=== PATIENT | female | born 1935 | race Caucasian/White ===

== ENCOUNTER 2019-10-03 16:44 | Observation (INO) | payer MEDICARE, SELFPAY ==
[2019-10-03 16:53] VITALS: BP 115/56; PULSE 112; RESP 20; TEMP 37.1; O2SAT 94; BMI 23.2
--- NOTE | 2019-10-03 16:53 | PC.NURSE ---
Pt arrived to floor via at this time.
--- NOTE | 2019-10-03 17:21 | XR_ITS ---
PROCEDURE: XR CHEST 2V CLINICAL HISTORY: emesis and weakness COMPARISON: No exams were available for comparison FINDINGS: The cardiomediastinal silhouette and pulmonary vascularity are within normal limits. Patchy density noted at the area of the lingula may be due to pericardial fat pad versus an area of infiltrate. Degenerative changes thoracic spine IMPRESSION: Pericardial fat pad versus infiltrate in the lingular region Dictated by: Benedict Purdy MD 10/04/2019 06:39 Electronically signed by Benedict Purdy MD in [place] 10/04/2019 06:39
--- NOTE | 2019-10-03 17:21 | CT_ITS ---
PROCEDURE: CT ABDOMEN PELVIS W CON CLINICAL INDICATION: abdominal pain and emesis Generalized abdominal pain weakness and vomiting COMPARISON: No exams were available for comparison TECHNIQUE: IV Contrast: 75ML OPTIRAY 350 Oral Contrast None Axial images obtained with sagittal and coronal reformats. All CT scans at the facility use one or more dose reduction, viz: automated exposure control, ma/kV adjustment per patient size (including targeted exams where dose is matched to indication, i.e. head), or iterative reconstruction technique. FINDINGS: LOWER THORAX: There is a 4 mm nodule and a 3 mm noncalcified nodule in the right middle lobe and 1 in the right lower lobe anteriorly. Mild scarring in the right middle lobe medially. Mild pericardial thickening. ABDOMEN & PELVIS: The liver, gallbladder, spleen, adrenal glands, and pancreas have an unremarkable appearance. Small hypodensities in both kidneys too small to categorize and may represent small renal cysts. No intestinal obstruction or free air. No evidence of appendicitis or diverticulitis. There is diverticulosis of the sigmoid colon. No pelvic mass or abnormal fluid collection. Multilevel degenerative changes are present in the lumbar spine and hips. IMPRESSION: 1. No acute finding. 2. Colonic diverticulosis. 3. Small nodules in the right lung base. Consider 12 month follow-up to confirm stability Dictated by: Benedict Purdy MD 10/04/2019 06:22 Electronically signed by Benedict Purdy MD in [facility] 10/04/2019 06:22
[2019-10-03 17:57] VITALS: PULSE 112; O2SAT 112
[2019-10-03 18:18] LABS: Basophils # 0.1 K/mm3 (0-0.2); Basophils % 0.9 % (0.1-2.0); Eosinophils # 0.1 K/mm3 (0.0-0.4); Eosinophils % 1.1 % (0.1-12.0); Hematocrit 33.8 % (37.0-47.0); Hemoglobin 10.5 g/dL (12.2-16.2); Lymphocytes # 1.3 K/mm3 (0.7-4.5); Lymphocytes % 13.9 % (10-50); Mean Corpuscular HGB Conc 31.1 g/dL (31.8-35.4); Mean Corpuscular Hemoglobin 33.6 pg (27.0-31.2); Mean Platelet Volume 8.6 fl (7.4-10.4); Monocytes # 0.5 K/mm3 (0.1-1.0); Monocytes % 4.7 % (1.7-9.3); Neutrophils # 7.7 K/mm3 (1.8-7.8); Neutrophils % 79.5 % (37.0-80.0); Platelet Count 236 K/mm3 (142-424); Red Blood Count 3.12 M/mm3 (4.20-5.40); Red Cell Distribution Width 15.6 % (11.5-17.5); White Blood Count 9.7 K/mm3 (4.8-10.8)
[2019-10-03 18:23] LABS: Amylase 37 U/L (30-110); Lipase 53 U/L (23-300)
[2019-10-03 18:24] LABS: Chloride 98 mmol/L (98-107); Lactic Acid 1.7 mmol/L (0.7-2.1); Sodium 137 mmol/L (136-145)
[2019-10-03 18:27] LABS: Alanine Aminotransferase 11 U/L (12-78); Albumin Level 3.1 g/dl (3.5-5.0); Albumin/Globulin Ratio 1.3 (1.1-1.8); Alkaline Phosphatase 91 U/L (38-126); Aspartate Amino Transferase 24 U/L (14-36); Bilirubin,Total 0.9 mg/dl (0.2-1.3); Blood Urea Nitrogen 7 mg/dl (7-17); Calcium 8.7 mg/dl (8.4-10.2); Carbon Dioxide 21 mmol/L (22.0-30.0); Creatinine Clearance Estimated 35 mL/min (50-200); Estimated Glomerular Filt Rate 43 ml/min (>60); GFR (African American) 52 ML/MIN (>60); Globulin 2.3 g/dL (1.3-3.2); Glucose 91 mg/dl (74-100); Total Protein,Serum 5.4 g/dl (6.3-8.2)
[2019-10-03 18:28] LABS: Magnesium 1.3 mg/dl (1.6-2.3)
--- NOTE | 2019-10-03 19:07 | ECG_ITS ---
APPROVED REPORT Exam: Resting ECG HR:93 bpm ECG Measurements Heart Rate 93 AXES AL 174 P 46 QRSd 74 QRS -14 QT 380 T 74 QTc 472 <Conclusion> Normal sinus rhythm LAD changes Abnormal ECG Electronically signed by : Michelet Estrada, 10/04/2019 17:03:05
[2019-10-03 19:46] VITALS: BP 127/61; PULSE 93; RESP 24; TEMP 36.7; O2SAT 95
--- NOTE | 2019-10-03 19:58 | PC.NURSE ---
Late entry: Pt completed Oral contrast @ 1914. Collin in Radiology was notified.
[2019-10-03 20:48] LABS: Adenovirus F 40/41, stool Not Detected (NotDetected); Astrovirus Not Detected (NotDetected); Campylobacter Not Detected (NotDetected); Clostridium Difficile A/B, PCR Not Detected (NotDetected); Cryptosporidium Not Detected (NotDetected); Cyclospora Cayetanesis Not Detected (NotDetected); Entamoeba histolytica Not Detected (NotDetected); Enteroaggregative E coli Not Detected (NotDetected); Enteropathogenic E coli Not Detected (NotDetected); Enterotoxigenic E coli Not Detected (NotDetected); Giardia lamblia Not Detected (NotDetected); Norovirus Not Detected (NotDetected); Plesimonas Shigalloides, PCR Not Detected (NotDetected); Rotavirus A Not Detected (NotDetected); Salmonella, PCR Not Detected (NotDetected); Sapovirus Not Detected (NotDetected); Shiga-like toxin E coli Not Detected (NotDetected); Shigella Enterovasive E coli Not Detected (NotDetected); Vibrio Cholerae Not Detected (NotDetected); Vibrio, PCR Not Detected (NotDetected); Yersinia Entercolitica, PCR Not Detected (NotDetected)
[2019-10-03 21:46] LABS: Microscopic, Urine URINE MICROSCOPIC (MICROSCOPIC)
[2019-10-03 21:47] LABS: Blood, Urine TRACE-I (Negative); Color,Urine YELLOW (Yellow); Glucose,Urine (UA) Negative (Negative); Ketones,Urine 1+ (Negative); Leukocyte Esterase,Urine TRACE (Negative); Nitrate,Urine Negative (Negative); Protein,Urine 1+ (Negative); Urobilinogen,Urine 0.2 EU/dl (0.2)
[2019-10-03 21:59] LABS: Bilirubin,Urine Negative (Negative)
[2019-10-03 22:00] LABS: Appearance,Urine Slightly Cloudy (Clear)
--- NOTE | 2019-10-03 22:01 | HMH.HP ---
*Admission Date: 10/03/19 *Chief complaint: nausea and weakness *History of present illness: Patient is an 83-year-old white female who presented from the office with significant weakness, intractable nausea and vomiting. Patient is status post cholecystectomy in May of this year. She relays that the gallbladder was gangrenous. Her surgery was at [facility] in [facility]. She has subsequently had intractable nausea and vomiting, escalating weakness. She has been to several hospitals for evaluation, including [facility], [facility], and [place]. She relays increasing difficulty with swallowing, and frequent emesis. She denies hematemesis or blood per rectum. With increasing weakness the patient has sustained several falls. She fell into a dresser, has some ecchymosis along her left frontal forehead. She is clear, lucid, and at her baseline mentation. She was brought into the office in a wheelchair, and has been unable to ambulate on her own. Ms. Méndez has had a few loose bowel movements, we will send those for culture and H. pylori. We have gotten a CT scan, are awaiting the result. I reviewed her chest film, she appears to have a left lower lobe infiltrative process. Radiology report is pending. [facility] History Medical History: Reports:: Asthma, Chronic Obstructive Pulmonary Disease (COPD), Gall Bladder Disease, Hypertension Denies:: Cancer, Diabetes Mellitus Type 1, Diabetes Mellitus Type 2, MRSA *Have you ever received a pneumonia vaccine?: Yes *Have you received a flu vaccine this season?: Yes Other Surgeries: Yes: Appendectomy Amputation: No Fractures: No - *Social History Last grade of school completed: High school graduate Smoking Status: Never smoker Alcohol Intake: never *Occupational Status:: retired Housing: house Household Members: family *Travel in the last 8 weeks: None Family Hx:: Coronary Artery Disease, Diabetes, Hyperlipidemia, Hypertension Review of Systems - Constitutional Reports chills, Reports fatigue, Reports lack of energy, Reports malaise, Reports weakness, Reports weight loss - Eyes Reports other - ENT Reports difficulty swallowing, Reports pain with swallowing - *Cardiovascular Denies chest pain - *Respiratory Reports cough, Reports shortness of breath, Denies excessive phlegm production - *Gastrointestinal Reports abdominal pain, Reports bloating, Reports change in bowel habits, Reports loose stools, Reports difficulty swallowing, Reports feeling full early, Reports incontinent of stools, Reports nausea, Reports vomiting, Denies coffee ground vomit, Denies vomiting blood, Denies black, tarry stools - *Genitourinary Reports other - *Musculoskeletal Reports limited joint movement, Reports muscle weakness, Reports body aches, Reports stiffness - Integumentary/Breasts Reports other - *Neurologic Reports unsteadiness, Reports frequent falls, Reports weakness, Denies confusion, Denies memory loss, Denies seizure-like activity - Psychiatric Reports change in appetite, Denies memory loss - Endocrine Reports cold intolerance - Hematologic/Lymphatic Denies easy bleeding, Denies easy bruising - Allergic/Immunologic Reports other Meds Home Medications Medication Instructions Recorded Confirmed Type albuterol sulfate 90 mcg/actuation 2 puffs INHALATION Q4HP PRN 10/03/19 10/03/19 History aerosol inhaler hydrocodone 5 mg-acetaminophen 325 1 tab PO DAILY PRN tab 10/03/19 10/03/19 History mg tablet lisinopril 10 mg tablet 10 mg PO DAILY tab 10/03/19 10/03/19 History pantoprazole 40 mg tablet,delayed 40 mg PO DAILY 10/03/19 10/03/19 History release Allergies Allergy/AdvReac Type Severity Reaction Status Date / Time azithromycin Allergy Unknown Verified 10/03/19 15:29 Penicillins Allergy Unknown Verified 10/03/19 15:29 Exam Vital signs and Labs for Last 24 Hours: Temp Pulse Resp BP Pulse Ox 98.1 F 93 H 24 127/
[2019-10-03 22:18] LABS: Bacteria,Urine 1+ /lpf; Mucus,Urine 1+ /lpf; WBC,Urine TNTC #/hpf (0-3)
[2019-10-03 22:58] LABS: Adenovirus,PCR Not Detected (NotDetected); Bordetella Pertussis Not Detected (NotDetected); Chlamydophila Pneumoniae, PCR Not Detected (NotDetected); Coronavirus 19, PCR Not Detected (NotDetected); Coronavirus 229E Not Detected (NotDetected); Coronavirus NL63 Not Detected (NotDetected); Coronavirus OC43 Not Detected (NotDetected); Coronovirus HKU1,PCR Not Detected (NotDetected); Human Metapneumovirus Not Detected (NotDetected); Influenza A, PCR Not Detected (NotDetected); Influenza AH1, 2009 Not Detected (NotDetected); Influenza AH1, PCR Not Detected (NotDetected); Influenza AH3,PCR Not Detected (NotDetected); Influenza B, PCR Not Detected (NotDetected); Mycoplasma Pneumoniae, PCR Not Detected (NotDected); Parainfluenza 1, PCR Not Detected (NotDetected); Parainfluenza 2, PCR Not Detected (NotDetected); Parainfluenza 3, PCR Not Detected (NotDetected); Parainfluenza 4, PCR Not Detected (NotDetected); Respiratory Syncytial Virus Not Detected (NotDetected); Rhinovirus/Enterovirus Not Detected (NotDetected)
[2019-10-04] VITALS: BP 131/95; PULSE 98; RESP 18; TEMP 37; O2SAT 94
[2019-10-04 03:56] VITALS: BP 127/46; PULSE 84; RESP 18; TEMP 36.7; O2SAT 97
[2019-10-04 04:01] VITALS: BMI 23.6
--- NOTE | 2019-10-04 04:21 | PC.NURSE ---
A&OX4. pt has active bowel sounds. pt C/O of nausea and was medicated per MAY. Pt has ambulated to BSC X1 danika, several loose stools this shift. diarrhea panel collected this shift and was negative
--- NOTE | 2019-10-04 07:24 | HMH.PHAVTE ---
[facility] Pharmacy VTE Monitoring - Patient Demographics Admission date: 10/04/19 Report Date: 10/04/19 Time: 07:24 Allergies/Adverse Reactions: Patient Allergies azithromycin Allergy (Intermediate, Verified 10/03/19 22:55) Hives Penicillins Allergy (Intermediate, Verified 10/03/19 22:55) hive Height: 1.63 m Weight: 62.641 kg Patient Problems: Current Active Problems Nausea & vomiting (Acute) Weakness (Acute) Dysphagia (Acute) Poor fluid intake (Acute) Poor fluid intake (Acute) At risk for dehydration due to poor fluid intake (Acute) Pneumonia (Acute) Asthma (Acute) Facial bruising (Acute) Chills (Acute) Hypokalemia (Acute) - VTE Risk Labs: VTE Related Lab Results Hgb 10.5 g/dL (12.2-16.2) L 10/03/19 18:00 Hct 33.8 % (37.0-47.0) L 10/03/19 18:00 Plt Count 236 K/mm3 (142-424) 10/03/19 18:00 BUN 7 mg/dl (7-17) 10/03/19 18:00 Creatinine 1.20 mg/dl (0.52-1.04) H 10/03/19 18:00 Estimated Creat Clear 35 mL/min (50-200) 10/03/19 18:00 Was VTE Risk Assessment Performed: No VTE Score: 4 VTE Risk Level: Low Risk Clinical Trial Participant: No - Prophylaxis VTE Prophylaxis Ordered?: Yes Types of VTE Prophylaxis: TEDS Knee High
[2019-10-04 07:51] VITALS: O2SAT 96
[2019-10-04 08:00] VITALS: BP 128/60; PULSE 97; RESP 16; TEMP 36.6; O2SAT 95
--- NOTE | 2019-10-04 08:08 | FL_ITS ---
PROCEDURE: FL UPPER GI SERIES W/O AIR CLINICAL INDICATION: dysphagia COMPARISON: No exams were available for comparison TECHNIQUE: FLUOROSCOPY TIME : 1 minutes 43 seconds FINDINGS: The patient could not stand up and was studied in the recumbent position. The swallowing function was normal. There is moderate posterior indentation of the barium column while swallowing lower cervical spine level consistent with cricopharyngeal dysfunction. There is [id number] multilevel degenerate spurring of the lower cervical spine noted as well. Esophageal motility was otherwise normal. There is a small sliding hiatal hernia but there is no significant GE reflux seen during the study. The study was ordered without air given and stomach is somewhat incompletely distended but shows no obvious mucosal abnormalities. The duodenal bulb and duodenal sweep appear normal. The proximal small bowel appears radiographically normal on a 4-5 minute delayed overhead film. 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 There is a small sliding hiatal hernia without significant GE reflux seen. Otherwise normal appearing stomach and proximal small bowel Dictated by: Dr. Nhan Reynaga MD 10/04/2019 09:[address] Nhan Reynaga MD in [place] 10/04/2019 09:32
--- NOTE | 2019-10-04 08:09 | HMH.ACPN2 ---
Internal Medicine - PN: Subj *Date: 10/04/19 *Time: 08:41 Interval history: uneventful night nausea responded to phenergan loose bm culture stool neg ct negative generalized weakness cxr=lingula infiltrate iv levaquin Exam Vital signs and Labs for Last 24 Hours: Temp Pulse Resp BP Pulse Ox 98.1 F 84 18 127/46 L 96 10/04/19 03:56 10/04/19 03:56 10/04/19 03:56 10/04/19 03:56 10/04/19 07:51 Laboratory Results - last 24 hr 10/03/19 18:00: WBC 9.7, RBC 3.12 L, Hgb 10.5 L, Hct 33.8 L, MCV 108.0 H, MCH 33.6 H, MCHC 31.1 L, RDW 15.6, Plt Count 236, MPV 8.6, Neut % (Auto) 79.5, Lymph % (Auto) 13.9, [place] % (Auto) 4.7, Eos % (Auto) 1.1, Baso % (Auto) 0.9, Neut # (Auto) 7.7, Lymph # (Auto) 1.3, [place] # (Auto) 0.5, Eos # (Auto) 0.1, Baso # (Auto) 0.1 10/03/19 18:00: Sodium 137, Potassium 3.0 L, Chloride 98, Carbon Dioxide 21 L, Anion Gap 21.0 H, BUN 7, Creatinine 1.20 H, Estimated Creat Clear 35, Estimated GFR 43 L, Est GFR ( Amer) 52 L, Glucose 91, Calcium 8.7, Magnesium 1.3 L, Total Bilirubin 0.9, AST 24, ALT 11 L, Alkaline Phosphatase 91, Total Protein 5.4 L, Albumin 3.1 L, Globulin 2.3, Albumin/Globulin Ratio 1.3 10/03/19 18:00: Amylase 37, Lipase 53 10/03/19 18:00: Lactate 1.7 10/03/19 20:30: Stl Aeromonas (PCR) Not detected, Stl C. cayetanensis PCR Not detected, Stool Rotavirus (PCR) Not detected, Stl Adenov F 40/41 PCR Not detected, Stool Astrovirus (PCR) Not detected, Stool Campylobacter PCR Not detected, Stl C.difficile Tox PCR Not detected, Stool Cryptosporidium PCR Not detected, Stl E.coli Shiga Tox PCR Not detected, Stool E coli O157 PCR Not detected, Stl Enterotoxigenic E PCR Not detected, Stool EPEC (PCR) Not detected, Stool EAEC (PCR) Not detected, Stl E. histolytica PCR Not detected, Stool Giardia Lamblia PCR Not detected, Stool Salmonella PCR Not detected, Stool Sapovirus (PCR) Not detected, Stl P. shigelloides PCR Not detected, Stl Shigella/EIEC PCR Not detected, St Y.enterocolitica PCR Not detected, Stool Vibrio (PCR) Not detected, Stl Vibrio cholerae PCR Not detected, Stl Norovirus GI/GII PCR Not detected 10/03/19 21:30: Urine Color Yellow, Urine Appearance Slightly cloudy, Urine pH 6.0, Ur Specific [place] 1.020, Urine Protein 1+, Urine Glucose (UA) Negative, Urine Ketones 1+, Urine Blood Trace-i, Urine Nitrate Negative, Urine Bilirubin Negative, Urine Urobilinogen 0.2, Ur Leukocyte Esterase Trace, Urine WBC Tntc, Ur Squamous Epith Cells 3-5, Urine Bacteria 1+, Fine Granular Casts 3-5, Urine Mucus 1+ 10/03/19 22:48: Chlamy pneumoniae PCR Not detected, Adenovirus (PCR) Not detected, B. pertussis DNA (PCR) Not detected, Coronavirus OC43 (PCR) Not detected, Coronavirus HKU1 (PCR) Not detected, Coronavirus 229E (PCR) Not detected, COVID-19 PCR Not detected, Coronavirus NL63 (PCR) Not detected, Human Metapneumovir PCR Not detected, Influenza A (H1) PCR Not detected, Influ A (H1N1/09) PCR Not detected, Influenza A (H3) PCR Not detected, Influenza Type A (PCR) Not detected, Influenza Type B (PCR) Not detected, M. pneumoniae (PCR) Not detected, Parainfluenza 1 (PCR) Not detected, Parainfluenza 2 (PCR) Not detected, Parainfluenza 3 (PCR) Not detected, Parainfluenza 4 (PCR) Not detected, RSV (PCR) Not detected, Entero/Rhino (PCR) Not detected I & O for Last 24 hours: Intake & Output 10/01/19 10/02/19 10/03/19 10/04/19 23:59 23:59 23:59 23:59 Intake Total 110 / 110 1081 / 1081 Output Total 240 / 240 Balance -130 / -130 1081 / 1081 Weight 135 lb 8 oz 138 lb 1.6 oz Microbiology Reports for the Last 24 Hours: Microbiology 10/03/19 21:30 Urine,Catheterized Urine Culture - Preliminary - Constitutional no acute distress, chronically ill appearing - *Routine HEENT Exam Head: Present: normocephalic. Absent: atraumatic ENT: Present: mucous membranes moist - *Routine Neck Exam Present: supple, trachea midline - *Routine Respiratory Exam Present: decreased breath sounds, rhonchi. Absent: acces
[2019-10-04 08:37] LABS: Basophils % 0.3 % (0.1-2.0); Eosinophils # 0.3 K/mm3 (0.0-0.4); Eosinophils % 4.3 % (0.1-12.0); Lymphocytes # 2.5 K/mm3 (0.7-4.5); Lymphocytes % 33.2 % (10-50); Mean Corpuscular HGB Conc 33.1 g/dL (31.8-35.4); Mean Corpuscular Hemoglobin 34.8 pg (27.0-31.2); Mean Platelet Volume 8.6 fl (7.4-10.4); Monocytes # 0.4 K/mm3 (0.1-1.0); Monocytes % 5.8 % (1.7-9.3); Neutrophils # 4.2 K/mm3 (1.8-7.8); Neutrophils % 56.6 % (37.0-80.0); Platelet Count 199 K/mm3 (142-424); Red Blood Count 2.71 M/mm3 (4.20-5.40); Red Cell Distribution Width 16.1 % (11.5-17.5); White Blood Count 7.4 K/mm3 (4.8-10.8)
[2019-10-04 08:38] LABS: Hemoglobin 9.4 g/dL (12.2-16.2)
[2019-10-04 08:39] LABS: Hematocrit 28.4 % (37.0-47.0)
[2019-10-04 08:50] LABS: Chloride 101 mmol/L (98-107)
[2019-10-04 08:51] LABS: Potassium 3.4 mmoL/L (3.5-5.1); Sodium 137 mmol/L (136-145)
[2019-10-04 08:53] LABS: Blood Urea Nitrogen 9 mg/dl (7-17); Creatinine Clearance Estimated 31 mL/min (50-200); Estimated Glomerular Filt Rate 36 ml/min (>60); GFR (African American) 44 ML/MIN (>60)
[2019-10-04 08:54] LABS: Anion Gap 16.4 mEq/L (5-15); Calcium 7.9 mg/dl (8.4-10.2); Carbon Dioxide 23 mmol/L (22.0-30.0); Glucose 52 mg/dl (74-100)
--- NOTE | 2019-10-04 09:56 | HMH.PHAINT ---
HOME MEDICATION RECONCILIATION COMPLETED USING LIST FROM [facility] AND PT INTERVIEW
--- NOTE | 2019-10-04 10:45 | SW/DCPLANNER ---
Addendum entered by Magdalena Booker 10/08/19 18:12: Daughter is agreeable to fax patient information to [facility] and [facility]. I will fax information tonight and follow up with referrals tomorrow morning. Addendum entered by Magdalena Booker 10/08/19 16:50: Patient has asked me to speak with her daughter regarding facilities. Patient stated that herself and her daughter are unsure of facilities in this area and would like to research. I have made several attempts to contact patients daughter with no answer. I will continue to call patients daughter to inform her of facilities and confirm which facilities patient information can be faxed. Addendum entered by Magdalena Booker 10/08/19 13:03: I have spoke with this patient again regarding discharge plans. Patient stated that she wants to return home with HH, daughter and wheel chair. I explained the option of placement for this patient. Patient stated that she did have a bad experience in the past with placement in [place]. I have informed this patient that I would be happy to search for placement in [place] for her and Dr Armijo is encouraging placement. Patient asked that she could speak with her daughter later today then speak with me this evening. I informed patient that I would follow up with her around 4PM today. Original Note: I have spoke with this patient regarding discharge plans once medically stable for discharge. Patient stated that she resides in [place] with her daughter. Patient stated that everything is well at home and she intends on returning back home with her daughter at time of discharge. Patient stated that she is in her wheelchair all the time at home. Patient has no further needs at home. Patient is currently receiving services from [facility]. I will contact home health agency at time of discharge to resume home health services. Discharge date is unknown at this time.
--- NOTE | 2019-10-04 11:56 | HMH.SLDYSPHA ---
Speech & Language Evaluation Speech/Language Dysphagia Evaluation Start: 10/04/19 11:47 Freq: ONCE Status: Active Protocol: Document 10/04/19 11:47 PAPI (Rec: 10/04/19 11:56 PAPI [id number]) Dysphagia Assess/Goals/Plan Assessment Date of Evaluation: 10/04/19 Evaluation Type Initial Certification Assessment/Problems dysphagia; painful swallow; Does Patient Qualify for Service No Qualify/Failure Comment Patient did not exhibit clinical signs or symptoms of dysphagia at bedside; Independent with swallowing strategies; Recommendations PHYSICIAN CERTIFICATION: The specified therapy services are required, authorized, and reviewed every 30 days. Diet Recommendations Mechanical Soft Liquid Type Recommendations Normal/Thin SL Swallow Guidelines Alt bite w/sip thru meal, Standard Aspiration Prec.,Eat at slow rate Dysphagia Swallow Precautions/Strategies Sitting Upright (90 deg),Chin Tuck Plan Pt/Guardian verbally ack understanding Yes of dx/prognosis/goals Pt/Guardian verbally ack understanding Yes of/consent to tx prog G -code Required No Education Instructions provided Patient and RN advised of swallowing strategies and precautions; Pt/Caregiver able to recall information Able to recall/restate Reinforcement needed No Speech & Language HPI History Present Illness Description of Patient Problem Mrs. Méndez presents with painful swallowing when eating /drinking; Pt/Caregiver Concerns Patient reports that she experiences pain with swallowing and a sensation of the food getting stuck, but she reports she does not feel like she can't breathe when food is stuck; Rehab Services Assessed Speech therapy Is this evaluation r/t stroke? No Vision Visual Difficulty Adequate Language Primary Language Azeri Koi Lang/Spoken in Home Azeri Accent Affect Communication? No General Information General Current Food Consistancy Mechanical Soft,Clear Liquids Dentition Upper Only,Poor Dentition Oxygen Status Room Air Facial Symmetry Symmetrical Patient Orientation Person,Place,Time,Situation Ability to Follow Directions Excellent Communication Ability No Impairment Dysph
--- NOTE | 2019-10-04 11:59 | HMH.PTEV ---
Physical Therapy Evaluation Rehab PT IP Evaluation Start: 10/04/19 08:11 Freq: ONCE Status: Active Protocol: Document 10/04/19 11:56 PHORMARTIN (Rec: 10/04/19 11:59 PHORNE [id number]) Subjective/History History History Pt is 83 yowf who presents with c/o general weakness, N/V , and now CAP. Pt reports using w/c for all mobility for the past 1 mo and lives with her daughter without steps to enter the home. Subjective Subjective Pt c/o feeling tired this am. Rehab PT IP Eval Objective Appearance Patient Behavior Appropriate Patient Orientation Person,Place,Time Difficulty following instructions none Speech Pattern Clear Ambulation Patient Able to Ambulate Yes Ambulation Observation IP General Gait Pattern Observation Shuffling Step Ambulation Distance (feet) 5 Ambulation Assistive Device None Ambulation Ability Minimal x 1 (25% assist) Balance Ability to Arise Able, uses arms to help Sitting Balance Steady, safe Standing Balance Steady, wide stance Dynamic Sitting Balance Ability Good Dynamic Standing Balance Ability Poor Transfers Bed Transfer Ability Contact Guard/Hand Hold Chair Transfer Ability Minimal x 1 (25% assist) Sit to Stand Bed Transfer Ability Minimal x 1 (25% assist) Sit to Stand Chair Transfer Ability Minimal x 1 (25% assist) ROM All Extremities PT ROM Status WFL MMT All Extremities PT MMT WFL Rehab PT IP prob,goals,plan Problems Date of Evaluation: 10/04/19 PT IP Problems Bed Mobility,Transfers,Gait Rehab Potential Rehab Potential Good Plan PT Intervention Plan Bed Mobility,Transfers,Gait, Therapeutic Exercise PT Plan Frequency BID Duration LOS Discharge Goals Bed Transfer Ability Supervision/Stand by Sit to Stand Chair Transfer Ability Contact Guard/Hand Hold Ambulation Assistive Device Rolling Walker Ambulation Distance (feet) 10 Discharge Plan PT Discharge Plan Pt is most appropriate for rehab placement, but could return home with family assist and home health therapy once medically stable. G -code Required No Eval Complexity Eval Charge Codes 39401 - Moderate Complexity PHYSICIAN CERTIFICATION: I certify the specified therapy se
--- NOTE | 2019-10-04 12:04 | HMH.PTEV ---
Physical Therapy Evaluation Rehab PT IP Evaluation Start: 10/04/19 08:11 Freq: ONCE Status: Active Protocol: Document 10/04/19 11:56 PHORMARTIN (Rec: 10/04/19 11:59 PHORNE [id number]) Subjective/History History History Pt is 83 yowf who presents with c/o general weakness, N/V , and now CAP. Pt reports using w/c for all mobility for the past 1 mo and lives with her daughter without steps to enter the home. Subjective Subjective Pt c/o feeling tired this am. Rehab PT IP Eval Objective Appearance Patient Behavior Appropriate Patient Orientation Person,Place,Time Difficulty following instructions none Speech Pattern Clear Ambulation Patient Able to Ambulate Yes Ambulation Observation IP General Gait Pattern Observation Shuffling Step Ambulation Distance (feet) 5 Ambulation Assistive Device None Ambulation Ability Minimal x 1 (25% assist) Balance Ability to Arise Able, uses arms to help Sitting Balance Steady, safe Standing Balance Steady, wide stance Dynamic Sitting Balance Ability Good Dynamic Standing Balance Ability Poor Transfers Bed Transfer Ability Contact Guard/Hand Hold Chair Transfer Ability Minimal x 1 (25% assist) Sit to Stand Bed Transfer Ability Minimal x 1 (25% assist) Sit to Stand Chair Transfer Ability Minimal x 1 (25% assist) ROM All Extremities PT ROM Status WFL MMT All Extremities PT MMT WFL Rehab PT IP prob,goals,plan Problems Date of Evaluation: 10/04/19 PT IP Problems Bed Mobility,Transfers,Gait Rehab Potential Rehab Potential Good Plan PT Intervention Plan Bed Mobility,Transfers,Gait, Therapeutic Exercise PT Plan Frequency BID Duration LOS Discharge Goals Bed Transfer Ability Supervision/Stand by Sit to Stand Chair Transfer Ability Contact Guard/Hand Hold Ambulation Assistive Device Rolling Walker Ambulation Distance (feet) 10 Discharge Plan PT Discharge Plan Pt is most appropriate for rehab placement, but could return home with family assist and home health therapy once medically stable. G -code Required No Eval Complexity Eval Charge Codes 43747 - Moderate Complexity PHYSICIAN CERTIFICATION: I certify the specified therapy se
[2019-10-04 13:21] VITALS: BMI 23.7
[2019-10-04 16:00] VITALS: BP 124/72; PULSE 78; RESP 16; TEMP 36.8; O2SAT 96
--- NOTE | 2019-10-04 18:34 | PC.NURSE ---
ALERT AND ORIENTED X4. PT HAS POOR PO INTAKE AND NEEDS ENCOURAGEMENT TO DRINK AND EAT. SHE STATES THAT NOTHING TASTES GOOD AND SHE CANNOT MAKE HERSELF EAT FOR THE PAST COUPLE OF WEEKS. PT REFUSES ENSURE BC SHE DISLIKES THE TASTE. 3 EPISODES OF DIARRHEA, 2 DOSES OF IMODIUM ADMINISTERED PER MAR. NO COMPLAINTS OF N/V. PT HAS BEEN UP TO BSC ASSIST X1 AND THEN HAS BEEN LYING IN BED THE ENTIRE SHIFT. PT C/O WEAKNESS AND GENERALIZED FATIGUE. IV IS SECURE, PATENT, AND INFUSING IV. NO COMPLAINTS VOICED. VSS. SAFETY MEASURES IN PLACE. WILL CONTINUE TO MONITOR
--- NOTE | 2019-10-04 19:12 | PC.NURSE ---
report given to melanie
[2019-10-04 19:53] VITALS: BP 128/42; PULSE 91; RESP 16; TEMP 36.9; O2SAT 95
[2019-10-05 03:57] VITALS: BP 128/65; PULSE 94; RESP 18; TEMP 36.9; O2SAT 100
[2019-10-05 05:38] VITALS: BMI 23.8
[2019-10-05 08:00] VITALS: BP 129/73; PULSE 112; RESP 18; TEMP 36.8; O2SAT 95
[2019-10-05 08:36] LABS: Basophils % 0.4 % (0.1-2.0); Eosinophils # 0.3 K/mm3 (0.0-0.4); Eosinophils % 3.8 % (0.1-12.0); Hematocrit 29.9 % (37.0-47.0); Hemoglobin 9.3 g/dL (12.2-16.2); Lymphocytes # 1.6 K/mm3 (0.7-4.5); Lymphocytes % 19.6 % (10-50); Mean Corpuscular HGB Conc 31.1 g/dL (31.8-35.4); Mean Corpuscular Volume 109.1 fl (81-99); Mean Platelet Volume 8.4 fl (7.4-10.4); Monocytes # 0.4 K/mm3 (0.1-1.0); Monocytes % 5.1 % (1.7-9.3); Neutrophils # 5.9 K/mm3 (1.8-7.8); Neutrophils % 71.2 % (37.0-80.0); Platelet Count 172 K/mm3 (142-424); Red Blood Count 2.75 M/mm3 (4.20-5.40); Red Cell Distribution Width 16.1 % (11.5-17.5); White Blood Count 8.3 K/mm3 (4.8-10.8)
[2019-10-05 08:44] LABS: Chloride 105 mmol/L (98-107); Potassium 3.4 mmoL/L (3.5-5.1); Sodium 139 mmol/L (136-145)
[2019-10-05 08:47] LABS: Anion Gap 13.4 mEq/L (5-15); Blood Urea Nitrogen 8 mg/dl (7-17); Carbon Dioxide 24 mmol/L (22.0-30.0); Creatinine Clearance Estimated 43 mL/min (50-200); Estimated Glomerular Filt Rate 53 ml/min (>60); GFR (African American) 64 ML/MIN (>60)
[2019-10-05 08:48] LABS: Calcium 7.9 mg/dl (8.4-10.2); Glucose 74 mg/dl (74-100)
--- NOTE | 2019-10-05 10:13 | HMH.ACPN2 ---
Internal Medicine - PN: Subj *Date: 10/06/19 *Time: 08:30 Interval history: better but still dec appetite and will try diff abx to cover esbl possibility and oob Exam Vital signs and Labs for Last 24 Hours: Temp Pulse Resp BP Pulse Ox 98.2 F 112 H 18 129/73 95 10/05/19 08:00 10/05/19 08:00 10/05/19 08:00 10/05/19 08:00 10/05/19 08:00 Laboratory Results - last 24 hr 10/03/19 21:30: Urine Color Yellow, Urine Appearance Slightly cloudy, Urine pH 6.0, Ur Specific [place] 1.020, Urine Protein 1+, Urine Glucose (UA) Negative, Urine Ketones 1+, Urine Blood Trace-i, Urine Nitrate Negative, Urine Bilirubin Negative, Urine Urobilinogen 0.2, Ur Leukocyte Esterase Trace, Urine WBC Tntc, Ur Squamous Epith Cells 3-5, Urine Bacteria 1+, Fine Granular Casts 3-5, Urine Mucus 1+ 10/05/19 08:10: WBC 8.3, RBC 2.75 L, Hgb 9.3 L, Hct 29.9 L, MCV 109.1 H, MCH 34.0 H, MCHC 31.1 L, RDW 16.1, Plt Count 172, MPV 8.4, Neut % (Auto) 71.2, Lymph % (Auto) 19.6, [place] % (Auto) 5.1, Eos % (Auto) 3.8, Baso % (Auto) 0.4, Neut # (Auto) 5.9, Lymph # (Auto) 1.6, [place] # (Auto) 0.4, Eos # (Auto) 0.3, Baso # (Auto) 0.0 10/05/19 08:10: Sodium 139, Potassium 3.4 L, Chloride 105, Carbon Dioxide 24, Anion Gap 13.4, BUN 8, Creatinine 1.00 D, Estimated Creat Clear 43, Estimated GFR 53 L, Est GFR ( Amer) 64 D, Glucose 74 D, Calcium 7.9 L I & O for Last 24 hours: Intake & Output 10/02/19 10/03/19 10/04/19 10/05/19 11:59 11:59 11:59 11:59 Intake Total 1191 / 1191 3450 / 3450 Output Total 240 / 240 300 / 300 Balance 951 / 951 3150 / 3150 Weight 138 lb 1.6 oz 139 lb 12.8 oz Microbiology Reports for the Last 24 Hours: Microbiology 10/03/19 21:30 Urine,Catheterized Urine Culture - Preliminary Gram Negative Rods - Constitutional no acute distress - *Routine HEENT Exam Head: Present: normocephalic Eye: Present: EOMI, PERRL ENT: Present: mucous membranes dry - *Routine Neck Exam Present: supple - *Routine Respiratory Exam Absent: respiratory distress - *Routine Cardiovascular Exam Present: RRR - *Routine Abdominal Exam Present: soft - *Routine Extremities Exam Absent: calf tenderness - *Routine Skin Exam Present: intact - *Routine Neurological Exam Present: alert, CN II-XII intact - Routine Psychiatric Exam Present: normal affect Assessment and Plan (1) Nausea & vomiting Current visit: Yes Status: Acute Qualifiers: Vomiting type: unspecified Vomiting Intractability: intractable Qualified Code(s): R11.2 - Nausea with vomiting, unspecified Category: Medical Code(s): R11.2 - Nausea with vomiting, unspecified (2) Weakness Current visit: Yes Status: Acute Category: Medical Code(s): R53.1 - Weakness (3) Dysphagia Current visit: Yes Status: Acute Qualifiers: Dysphagia type: pharyngoesophageal phase Qualified Code(s): R13.14 - Dysphagia, pharyngoesophageal phase Category: Medical Code(s): R13.10 - Dysphagia, unspecified (4) Poor fluid intake Current visit: Yes Status: Acute Category: Medical Code(s): R63.8 - Other symptoms and signs concerning food and fluid intake (5) Poor fluid intake Current visit: Yes Status: Acute Category: Medical Code(s): R63.8 - Other symptoms and signs concerning food and fluid intake (6) At risk for dehydration due to poor fluid intake Current visit: Yes Status: Acute Category: Medical Code(s): Z91.89 - Other specified personal risk factors, not elsewhere classified (7) Pneumonia Current visit: Yes Status: Acute Qualifiers: Pneumonia type: due to unspecified organism Laterality: left Lung location: lower lobe of lung Qualified Code(s): J18.9 - Pneumonia, unspecified organism Category: Medical Code(s): J18.9 - Pneumonia, unspecified organism (8) Asthma Current visit: Yes Status: Acute Qualifiers: Asthma severity: moderate Asthma persist
--- NOTE | 2019-10-05 12:00 | PC.NURSE ---
THIS RN PROVIDED REPORT TO MARCELLUS CHAPARRO RN WHOM TOOK OVER CARE.
[2019-10-05 15:47] VITALS: BP 114/51; PULSE 91; RESP 17; TEMP 36.7; O2SAT 100
--- NOTE | 2019-10-05 18:29 | PC.NURSE ---
Pt alert and oriented. No complaints since having pt from around lunch. Received report from Piter Gold RN. No c/o this evening. CB in reach. Fluids infusing as ordered per mar. Will cont to mx.
[2019-10-05 19:36] VITALS: BP 121/53; PULSE 99; RESP 16; TEMP 36.9; O2SAT 97
[2019-10-06 03:18] VITALS: BP 123/50; PULSE 50; RESP 17; TEMP 36.7; O2SAT 91
--- NOTE | 2019-10-06 03:24 | PC.NURSE ---
A&O X4. PT RESTED WELL THIS SHIFT WITH EYES CLOSED. PT STATES SHE DID NOT HAD AN APPETITE ON PREVIOUS SHIFT. MINIMAL C/O ABDOMINAL PAIN AT BEGINNING OF SHIFT. ADMINISTERED NORCO X1 PER MAY FPR PAIN RELIEF. UPON REASSESSMENT PT NOTED RESTING WITH EYES CLOSED AND NO FURTHER COMPLAINTS. MILD NAUSEA THIS SHIFT WELL. ADMINISTERED ZOFRAN PER MAY X1 THUS FAR. UPON REASSESSMENT PT NOTED RESTING WITH EYES CLOSED. DENIES ABDOMINAL DISCOMFORT WITH PALPATION. ABDOMEN NOTED SOFT AND FLAT. PT HAS NOT HAD A BM THUS FAR THIS SHIFT. DENIES THE URGE TO DEFECATE WHEN ASKED. ADEQUATE URINE OUTPUT NOTED PER BSC. URINE NOTED CLEAR AND BRIGHT YELLOW. TOLERATED RA WELL WITH NO C/O SOA. HYPERACTIVE BOWEL SOUNDS NOTED. NO EDEMA. REFUSED TEDS. VSS. REMAINS SAFE. CALL LIGHT WITHIN REACH. WILL CONTINUE TO MONITOR.
[2019-10-06 05:00] VITALS: BMI 24.1
[2019-10-06 07:51] LABS: Basophils % 0.4 % (0.1-2.0); Eosinophils # 0.2 K/mm3 (0.0-0.4); Eosinophils % 2.6 % (0.1-12.0); Hematocrit 29.7 % (37.0-47.0); Hemoglobin 9.3 g/dL (12.2-16.2); Lymphocytes % 26.5 % (10-50); Mean Corpuscular HGB Conc 31.4 g/dL (31.8-35.4); Mean Corpuscular Hemoglobin 34.6 pg (27.0-31.2); Mean Corpuscular Volume 110.3 fl (81-99); Mean Platelet Volume 8.7 fl (7.4-10.4); Monocytes # 0.4 K/mm3 (0.1-1.0); Monocytes % 5.9 % (1.7-9.3); Neutrophils # 4.9 K/mm3 (1.8-7.8); Neutrophils % 64.6 % (37.0-80.0); Platelet Count 197 K/mm3 (142-424); Red Blood Count 2.69 M/mm3 (4.20-5.40); White Blood Count 7.6 K/mm3 (4.8-10.8)
[2019-10-06 07:54] LABS: Chloride 106 mmol/L (98-107); Potassium 4.4 mmoL/L (3.5-5.1); Sodium 140 mmol/L (136-145)
[2019-10-06 07:57] LABS: Anion Gap 14.4 mEq/L (5-15); Blood Urea Nitrogen 8 mg/dl (7-17); Calcium 8.1 mg/dl (8.4-10.2); Carbon Dioxide 24 mmol/L (22.0-30.0); Creatinine Clearance Estimated 44 mL/min (50-200); Estimated Glomerular Filt Rate 69 ml/min (>60); GFR (African American) 83 ML/MIN (>60); Glucose 75 mg/dl (74-100)
[2019-10-06 08:00] VITALS: BP 117/54; PULSE 98; RESP 18; TEMP 36.5; O2SAT 90
--- NOTE | 2019-10-06 08:32 | HMH.ACPN2 ---
Internal Medicine - PN: Subj *Date: 10/07/19 *Time: 07:05 Interval history: doing better - has klebsiella uti but continued dec po intake and upper abd pain Exam Vital signs and Labs for Last 24 Hours: Temp Pulse Resp BP Pulse Ox 97.7 F 98 H 18 117/54 L 90 L 10/06/19 08:00 10/06/19 08:00 10/06/19 08:00 10/06/19 08:00 10/06/19 08:00 Laboratory Results - last 24 hr 10/03/19 21:30: Urine Color Yellow, Urine Appearance Slightly cloudy, Urine pH 6.0, Ur Specific [place] 1.020, Urine Protein 1+, Urine Glucose (UA) Negative, Urine Ketones 1+, Urine Blood Trace-i, Urine Nitrate Negative, Urine Bilirubin Negative, Urine Urobilinogen 0.2, Ur Leukocyte Esterase Trace, Urine WBC Tntc, Ur Squamous Epith Cells 3-5, Urine Bacteria 1+, Fine Granular Casts 3-5, Urine Mucus 1+ 10/05/19 08:10: WBC 8.3, RBC 2.75 L, Hgb 9.3 L, Hct 29.9 L, MCV 109.1 H, MCH 34.0 H, MCHC 31.1 L, RDW 16.1, Plt Count 172, MPV 8.4, Neut % (Auto) 71.2, Lymph % (Auto) 19.6, [place] % (Auto) 5.1, Eos % (Auto) 3.8, Baso % (Auto) 0.4, Neut # (Auto) 5.9, Lymph # (Auto) 1.6, [place] # (Auto) 0.4, Eos # (Auto) 0.3, Baso # (Auto) 0.0 10/05/19 08:10: Sodium 139, Potassium 3.4 L, Chloride 105, Carbon Dioxide 24, Anion Gap 13.4, BUN 8, Creatinine 1.00 D, Estimated Creat Clear 43, Estimated GFR 53 L, Est GFR ( Amer) 64 D, Glucose 74 D, Calcium 7.9 L 10/06/19 07:16: WBC 7.6, RBC 2.69 L, Hgb 9.3 L, Hct 29.7 L, MCV 110.3 H, MCH 34.6 H, MCHC 31.4 L, RDW 16.0, Plt Count 197, MPV 8.7, Neut % (Auto) 64.6, Lymph % (Auto) 26.5, [place] % (Auto) 5.9, Eos % (Auto) 2.6, Baso % (Auto) 0.4, Neut # (Auto) 4.9, Lymph # (Auto) 2.0, [place] # (Auto) 0.4, Eos # (Auto) 0.2, Baso # (Auto) 0.0 10/06/19 07:16: Sodium 140, Potassium 4.4 D, Chloride 106, Carbon Dioxide 24, Anion Gap 14.4, BUN 8, Creatinine 0.80, Estimated Creat Clear 44, Estimated GFR 69, Est GFR ( Amer) 83 D, Glucose 75, Calcium 8.1 L I & O for Last 24 hours: Intake & Output 10/03/19 10/04/19 10/05/19 10/06/19 11:59 11:59 11:59 11:59 Intake Total 1191 / 1191 3450 / 3450 2800 / 2800 Output Total 240 / 240 550 / 550 950 / 950 Balance 951 / 951 2900 / 2900 1850 / 1850 Weight 138 lb 1.6 oz 139 lb 12.8 oz 141 lb 4 oz Microbiology Reports for the Last 24 Hours: Microbiology 10/03/19 21:30 Urine,Catheterized Urine Culture - Preliminary Klebsiella pneumoniae Gram Positive Bacilli 10/03/19 18:00 Blood Blood Culture - Preliminary NO GROWTH AFTER 48 HOURS 10/03/19 18:00 Blood Blood Culture - Preliminary NO GROWTH AFTER 48 HOURS - Constitutional no acute distress - *Routine HEENT Exam Head: Present: normocephalic Eye: Present: EOMI, PERRL ENT: Present: mucous membranes dry - *Routine Neck Exam Present: supple - *Routine Respiratory Exam Present: CTA bilaterally - *Routine Cardiovascular Exam Present: RRR, murmur - *Routine Abdominal Exam Present: soft, tenderness - *Routine Extremities Exam Absent: calf tenderness - *Routine Skin Exam Present: intact - *Routine Neurological Exam Present: alert, oriented X3, CN II-XII intact - Routine Psychiatric Exam Present: normal affect Assessment and Plan (1) Nausea & vomiting Current visit: Yes Status: Acute Qualifiers: Vomiting type: unspecified Vomiting Intractability: intractable Qualified Code(s): R11.2 - Nausea with vomiting, unspecified Category: Medical Code(s): R11.2 - Nausea with vomiting, unspecified (2) Weakness Current visit: Yes Status: Acute Category: Medical Code(s): R53.1 - Weakness (3) Dysphagia Current visit: Yes Status: Acute Qualifiers: Dysphagia type: pharyngoesophageal phase Qualified Code(s): R13.14 - Dysphagia, pharyngoesophageal phase Category: Medical Code(s): R13.10 - Dysphagia, unspecified (4) Poor fluid intake Current visit: Yes Status: Acute
[2019-10-06 14:22] VITALS: BP 125/63; PULSE 97; O2SAT 93
[2019-10-06 15:44] VITALS: BP 131/70; PULSE 105; RESP 19; TEMP 36.9; O2SAT 95
[2019-10-06 15:45] VITALS: PULSE 88; PULSE 90
--- NOTE | 2019-10-06 15:54 | PC.NURSE ---
Pt alert and able to make needs known. Has had nausea this shift and states new meds have helped some but not completely taken nausea away. Have called rt to give prn albuteral neb r/t intermittent dry coughing. Pt has been up to chair this shift and refuses to take a bath at this time. CB is within reach. Have encouraged deep breathing. Pt has had no bm, therefore havent sent occult stool at this time. Cont to mx. VSS. Has used 02 intermittently prn for comfort. IV abt cont.
[2019-10-06 21:17] VITALS: BP 113/48; PULSE 75; RESP 17; TEMP 36.5; O2SAT 92
--- NOTE | 2019-10-06 21:46 | PC.NURSE ---
PER PT REQUEST APPLIED 2 LNC AT THIS TIME. PT STATES SHE FEELS SOA WHILE LYING IN BED. NO RESPIRATORY DISTRESS NOTED. WILL CONTINUE TO MONITOR.
--- NOTE | 2019-10-07 02:53 | PC.NURSE ---
A&O X4. NO C/O NAUSEA OR ABD PAIN THUS FAR THIS SHIFT. PT STATES SINCE RECEIVING HER PROTONIX AND REGLAN SHE HAS NOT HAD ANY NAUSEA OR ABD PAIN. APPETITE REMAINS POOR. NPO SINCE 0000 THIS SHIFT FOR SOLE CONSULT THIS AM. BILATERAL LUNGS NOTED CLEAR T/O UPON AUSCULTATION. PT REPORTS HAVING A DRY INTERMITTENT COUGH. ENCOURAGED USE OF INCENTIVE SPIROMETER THIS AM. PT DEMONSTRATED APPROPRIATE USE OF IS. +1 NON-PITTING EDEMA NOTED TO BLE. REFUSED TEDS. ADEQUATE URINE OUTPUT THIS SHIFT PER BSC ASSIST X1. NO BM THUS FAR. STILL NEEDS OCCULT STOOL SPECIMEN. VSS. REMAINS SAFE WITH BED ALARM FUNCTIONING. CALL LIGHT WITHIN REACH. WILL CONTINUE TO MONITOR.
[2019-10-07 03:14] VITALS: BP 147/83; PULSE 109; RESP 18; TEMP 36.7; O2SAT 98
[2019-10-07 05:00] VITALS: BMI 24.6
[2019-10-07 06:14] LABS: Eosinophils # 0.3 K/mm3 (0.0-0.4); Lymphocytes # 1.3 K/mm3 (0.7-4.5); Monocytes # 0.2 K/mm3 (0.1-1.0); Red Cell Distribution Width 15.9 % (11.5-17.5)
[2019-10-07 06:20] LABS: Basophils % 0.5 % (0.1-2.0); Chloride 107 mmol/L (98-107); Eosinophils % 7.2 % (0.1-12.0); Hematocrit 25.5 % (37.0-47.0); Lymphocytes % 37.8 % (10-50); Mean Corpuscular HGB Conc 31.1 g/dL (31.8-35.4); Mean Corpuscular Hemoglobin 34.1 pg (27.0-31.2); Mean Corpuscular Volume 109.6 fl (81-99); Mean Platelet Volume 8.4 fl (7.4-10.4); Monocytes % 6.4 % (1.7-9.3); Neutrophils # 1.7 K/mm3 (1.8-7.8); Platelet Count 154 K/mm3 (142-424); Potassium 3.9 mmoL/L (3.5-5.1); Red Blood Count 2.33 M/mm3 (4.20-5.40); Sodium 139 mmol/L (136-145); White Blood Count 3.5 K/mm3 (4.8-10.8)
[2019-10-07 06:23] LABS: Anion Gap 9.9 mEq/L (5-15); Blood Urea Nitrogen 6 mg/dl (7-17); Calcium 7.7 mg/dl (8.4-10.2); Carbon Dioxide 26 mmol/L (22.0-30.0); Creatinine Clearance Estimated 45 mL/min (50-200); Estimated Glomerular Filt Rate 80 ml/min (>60); GFR (African American) 97 ML/MIN (>60); Glucose 72 mg/dl (74-100)
--- NOTE | 2019-10-07 06:31 | PC.NURSE ---
CRITICAL LAB OF HGB 8.0 REPORTED TO ART SUPERVISOR, KOURTNEY. NO NEW ORDERS AT THIS TIME.
[2019-10-07 08:00] VITALS: BP 145/58; PULSE 94; RESP 16; TEMP 36.7; O2SAT 97
--- NOTE | 2019-10-07 08:06 | HMH.ACPN2 ---
Internal Medicine - PN: Subj *Date: 10/07/19 *Time: 08:06 Interval history: Patient is continuing to have some nausea. She continues with her globalized weakness. She has a Klebsiella UTI, on Invanz. He had previously seen a lingular infiltrate, will restart her Levaquin. Consult is pending. She is anemic with a hemoglobin of 8.0, increased MCV. Exam Vital signs and Labs for Last 24 Hours: Temp Pulse Resp BP Pulse Ox 98.1 F 109 H 18 147/83 H 98 10/07/19 03:14 10/07/19 03:14 10/07/19 03:14 10/07/19 03:14 10/07/19 03:14 Laboratory Results - last 24 hr 10/07/19 06:05: WBC 3.5 L D, RBC 2.33 L, Hgb 8.0 L, Hct 25.5 L, MCV 109.6 H, MCH 34.1 H, MCHC 31.1 L, RDW 15.9, Plt Count 154, MPV 8.4, Neut % (Auto) 48.0, Lymph % (Auto) 37.8, [place] % (Auto) 6.4, Eos % (Auto) 7.2, Baso % (Auto) 0.5, Neut # (Auto) 1.7 L, Lymph # (Auto) 1.3, [place] # (Auto) 0.2, Eos # (Auto) 0.3, Baso # (Auto) 0.0 10/07/19 06:05: Sodium 139, Potassium 3.9, Chloride 107, Carbon Dioxide 26, Anion Gap 9.9, BUN 6 L, Creatinine 0.70, Estimated Creat Clear 45, Estimated GFR 80, Est GFR ( Amer) 97, Glucose 72 L, Calcium 7.7 L I & O for Last 24 hours: Intake & Output 10/04/19 10/05/19 10/06/19 10/07/19 23:59 23:59 23:59 23:59 Intake Total 3061 / 3061 3295 / 3295 2028 815 / 815 Output Total 50 / 150 1050 / 1250 1450 / 2150 850 / 850 Balance 3011 / 2911 2244 / 2044 579 / -121 -35 / -35 Weight 138 lb 14.259 oz 139 lb 12.8 oz 141 lb 4 oz 144 lb 2 oz Microbiology Reports for the Last 24 Hours: Microbiology 10/03/19 21:30 Urine,Catheterized Urine Culture - Preliminary Klebsiella pneumoniae Enterococcus faecalis - Constitutional no acute distress, chronically ill appearing - *Routine HEENT Exam Eye: Absent: conjunctival icterus, periorbital ecchymosis ENT: Present: mucous membranes moist - *Routine Neck Exam Present: supple. Absent: JVD, tenderness - *Routine Respiratory Exam Present: CTA bilaterally. Absent: accessory muscle use, rhonchi, crackles - *Routine Cardiovascular Exam Present: RRR, Normal S1, Normal S2 - *Routine Abdominal Exam Present: soft, obese. Absent: tenderness, organomegaly, mass - *Routine Extremities Exam Present: KO stockings. Absent: cyanosis, clubbing, calf tenderness, tenderness - *Routine Skin Exam Present: intact. Absent: cyanosis, jaundice - *Routine Neurological Exam Present: alert, oriented X3 - Routine Psychiatric Exam Present: cooperative Assessment and Plan (1) Nausea & vomiting Current visit: Yes Status: Acute Qualifiers: Vomiting type: unspecified Vomiting Intractability: intractable Qualified Code(s): R11.2 - Nausea with vomiting, unspecified Category: Medical Code(s): R11.2 - Nausea with vomiting, unspecified (2) Weakness Current visit: Yes Status: Acute Category: Medical Code(s): R53.1 - Weakness (3) Dysphagia Current visit: Yes Status: Acute Qualifiers: Dysphagia type: pharyngoesophageal phase Qualified Code(s): R13.14 - Dysphagia, pharyngoesophageal phase Category: Medical Code(s): R13.10 - Dysphagia, unspecified (4) Poor fluid intake Current visit: Yes Status: Acute Category: Medical Code(s): R63.8 - Other symptoms and signs concerning food and fluid intake (5) Poor fluid intake Current visit: Yes Status: Acute Category: Medical Code(s): R63.8 - Other symptoms and signs concerning food and fluid intake (6) At risk for dehydration due to poor fluid intake Current visit: Yes Status: Acute Category: Medical Code(s): Z91.89 - Other specified personal risk factors, not elsewhere classified (7) Pneumonia Current visit: Yes Status: Acute Qualifiers: Pneumonia type: due to unspecified organism Laterality: left Lung location: lower lobe of lung Qualified Code(s): J18.9 - Pneumonia, unspecified organism Category: M
--- NOTE | 2019-10-07 08:14 | XR_ITS ---
PROCEDURE: XR CHEST 2V CLINICAL INDICATION: lingular pneumonia Follow-up pneumonia COMPARISON: XR CHEST 2V from 10/03/2019 FINDINGS: Unremarkable cardiovascular structures. Lingular infiltrate has improved. There has been interval development of a small right pleural effusion. 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 IMPRESSION: Improved lingular infiltrate. New small right effusion Dictated by: Benedict Purdy MD 10/07/2019 09:34 Electronically signed by Benedict Purdy MD in [place] 10/07/2019 09:34
--- NOTE | 2019-10-07 08:23 | PC.NURSE ---
called office talked with jennifer about consult
--- NOTE | 2019-10-07 11:32 | HMH.GSCON ---
*Admission Date: 10/04/19 *Reason for consult:: Epigastric Pain *History of present illness: Patient is an 83-year-old white female whom I am asked to see in consultation from [facility] primary care physicians group. She has had some problems with epigastric pain and nausea and vomiting for approximately 4 months. She states that this began around the time she had gallbladder surgery which was performed at [facility] in May for reportedly gangrenous cholecystitis. Exact details of this is unknown. Due to her inability to maintain nutrition she has had some recent weakness. She sustained several falls. She had presented to her primary care provider's office several days ago and was admitted for inpatient management on 10/03/2019. She has undergone some evaluation at outside facilities for this condition but the exact details are unknown. Consideration was being given for gastroenterology consultation today. Patient currently being treated for Klebsiella urinary tract infection and possible pneumonia. Review of Systems - Review of Systems Review of systems:: pertinent systems reviewed and negative unless documented below - *Neurologic Reports unsteadiness, Reports frequent falls, Reports weakness, Denies confusion, Denies memory loss, Denies seizure-like activity [facility] History I have reviewed the patient's past medical history: Yes Medical History: Reports:: Asthma, Chronic Obstructive Pulmonary Disease (COPD), Gall Bladder Disease, Hypertension Denies:: Cancer, Diabetes Mellitus Type 1, Diabetes Mellitus Type 2, MRSA *Have you ever received a pneumonia vaccine?: Yes *Have you received a flu vaccine this season?: Yes Other Surgeries: Yes: Appendectomy Amputation: No Fractures: No - *Social History Last grade of school completed: High school graduate Smoking Status: Never smoker Alcohol Intake: never *Occupational Status:: retired Housing: house Household Members: family *Travel in the last 8 weeks: None Family Hx:: Coronary Artery Disease, Diabetes, Hyperlipidemia, Hypertension Meds Home Medications Medication Instructions Recorded Confirmed Type albuterol sulfate 90 mcg/actuation 2 puffs INHALATION Q4HP PRN 10/03/19 10/03/19 History aerosol inhaler hydrocodone 5 mg-acetaminophen 325 1 tab PO DAILY PRN tab 10/03/19 10/03/19 History mg tablet lisinopril 10 mg tablet 10 mg PO DAILY tab 10/03/19 10/03/19 History pantoprazole 40 mg tablet,delayed 40 mg PO DAILY 10/03/19 10/03/19 History release Furosemide [Furosemide 40MG tAB] 40 mg PO DAILY 10/04/19 10/04/19 History Sucralfate [Sucralfate 1gm 1 gm PO ACHS 10/04/19 10/04/19 History Tab] clonazePAM [Klonopin] 0.5 mg PO BIDP PRN 10/04/19 10/04/19 History Allergies Allergy/AdvReac Type Severity Reaction Status Date / Time azithromycin Allergy Intermediate Hives Verified 10/03/19 22:55 Penicillins Allergy Intermediate hive Verified 10/03/19 22:55 Exam Vital signs and Labs for Last 24 Hours: Temp Pulse Resp BP Pulse Ox 98.0 F 94 H 16 145/58 H 97 10/07/19 08:00 10/07/19 08:00 10/07/19 08:00 10/07/19 08:00 10/07/19 08:00 Laboratory Results - last 24 hr 10/07/19 06:05: WBC 3.5 L D, RBC 2.33 L, Hgb 8.0 L, Hct 25.5 L, MCV 109.6 H, MCH 34.1 H, MCHC 31.1 L, RDW 15.9, Plt Count 154, MPV 8.4, Neut % (Auto) 48.0, Lymph % (Auto) 37.8, [place] % (Auto) 6.4, Eos % (Auto) 7.2, Baso % (Auto) 0.5, Neut # (Auto) 1.7 L, Lymph # (Auto) 1.3, [place] # (Auto) 0.2, Eos # (Auto) 0.3, Baso # (Auto) 0.0 10/07/19 06:05: Sodium 139, Potassium 3.9, Chloride 107, Carbon Dioxide 26, Anion Gap 9.9, BUN 6 L, Creatinine 0.70, Estimated Creat Clear 45, Estimated GFR 80, Est GFR ( Amer) 97, Glucose 72 L, Calcium 7.7 L I & O for Last 24 hours: Intake & Output 10/04/19 10/05/19 10/06/19 10/07/19 11:59 11:59 11:59 11:59 Intake Total 1191 / 1191 3450 / 3450 2800 / 2800 1869 / 1869 Output Total 240 / 240 550 / 550 950 / 95
[2019-10-07 12:03] LABS: H. pylori Stool Ag, EIA Negative (Negative)
--- NOTE | 2019-10-07 13:40 | XR_ITS ---
PROCEDURE: XR KUB CLINICAL INDICATION: RESIDUAL REDICAT FROM CT SCAN Vomiting COMPARISON: FL UPPER GI SERIES W/O AIR from 10/04/2019 FINDINGS: Patient is scheduled for an upper GI with small-bowel follow-through however, there is a moderate amount of residual contrast within the colon from and upper GI. Multiple diverticular present within the sigmoid colon. IMPRESSION: Residual contrast from upper GI precluding performing small-bowel follow-through Dictated by: Benedict Purdy MD 10/07/2019 15:32 Electronically signed by Benedict Purdy MD in [place] 10/07/2019 15:32
[2019-10-07 16:00] VITALS: BP 155/84; PULSE 103; RESP 20; TEMP 36.8; O2SAT 96
--- NOTE | 2019-10-07 16:10 | DIET.NUTRFU ---
Pt continues with poor appetite, she is malnourished. Diet has been supplemented with protein powder in food tid. She does not like supplement drinks. Counseling given on importance of adequate nutrition. Will monitor pt's nutritional status as well as further gastroenterology recommendations and provide appropriate MNT.
--- NOTE | 2019-10-07 17:25 | PC.NURSE ---
Addendum entered by Silvia Hutchinson RN 10/07/19 17:32: PATIENT HAS FREQUENT URINATION. PATIENT HAS HAD SEVERAL TRIPS TO BEDSIDE COMMODE THUS FAR WITH 300ML URINE OUT PUT. Original Note: PATIENT A&O X4, PATIENT WEAK WHEN AMBULATING TO BEDSIDE COMMODE. PATIENT HAD UPPER GI AND SMALL BOWEL XRAY ORDERED. PATIENT WAS IMPACTED AND STILL HAD BARIUM FROM PREVIOUS TESTING. THIS RN PHONED DR. HOPPER, ORDERS TO ADMINISTER MAGNESIUM CITRATE NOW AND THEN ANOTHER IN 12 HRS IF NO BOWEL MOVEMENT. THIS RN WENT INTO PATIENT'S ROOM AND FOUND CUP STILL FULL OF MAGNESIUM CITRATE. THIS RN AGAIN EDUCATED PATIENT THE IMPORTANCE OF DRINKING THE MEDICATION AND PATIENT VERBALIZED AN UNDERSTANDING AND DRANK. PATIENT HAS NOT HAD A BOWEL MOVEMENT THUS FAR. WILL CONTINUE TO MONITOR. NO OTHER CONCERNS AT THIS TIME.
--- NOTE | 2019-10-07 17:31 | HMH.CONS ---
*Admission Date: 10/04/19 *Reason for consult:: Nausea/vomiting/anemia *History of present illness: This is an 83-year-old female with complaints of epigastric pain and nausea and vomiting for approximately 4 months. She states that this began around the time she had gallbladder surgery which was performed at [facility] in May for reportedly gangrenous cholecystitis. Due to her inability to maintain nutrition she has had some recent weakness. She sustained several falls. She was admitted with the intractable nausea and vomiting weakness and occasional dysphagia. Inpatient rehydration has uncovered underlying anemia with a hemoglobin of 8.0. She denies any melena or NSAID use. Patient currently being treated for Klebsiella urinary tract infection and possible pneumonia. She does have some abdominal discomfort on exam, mostly suprapubic. Today she complains of the nausea vomiting, lack of appetite, and weakness. She reports that she is struggling to eat and has lost as much as 40 pounds since this all started. She also reports she is having variable bowel movements and loose stool. She reports she has no appetite. She is missing 2 or 3 days with no bowel movement and then will have some loose stool and then go back to constipation. She is on hydrocodone at home. She denies any blood or mucus in her stool that she is aware of. CT scan showed no acute abnormalities. Upper GI series showed some cricopharyngeal dysfunction and some lower cervical abnormalities with a small hiatal hernia but otherwise normal scan. Dr. Garcia, general surgery, was consulted on this patient as well. He has recommended a small bowel follow-through and possibly an EGD. [facility] History Medical History: Reports:: Asthma, Chronic Obstructive Pulmonary Disease (COPD), Gall Bladder Disease, Hypertension Denies:: Cancer, Diabetes Mellitus Type 1, Diabetes Mellitus Type 2, MRSA *Have you ever received a pneumonia vaccine?: Yes *Have you received a flu vaccine this season?: Yes Other Surgeries: Yes: Appendectomy, Cholecystectomy Amputation: No Fractures: No - *Social History Last grade of school completed: High school graduate Smoking Status: Never smoker Alcohol Intake: never *Occupational Status:: retired Housing: house Household Members: family *Travel in the last 8 weeks: None Family Hx:: Coronary Artery Disease, Diabetes, Hyperlipidemia, Hypertension Review of Systems - Constitutional Reports anorexia, Reports lack of energy, Reports weakness, Reports weight loss, Denies body ache(s), Denies chills, Denies fever(s) - Eyes Denies blind spots, Denies blurry vision, Denies pain - ENT Reports difficulty swallowing, Denies abnormal hearing, Denies hoarseness, Denies pain with swallowing, Denies throat swelling - *Cardiovascular Denies chest pain, Denies excessive sweating, Denies shortness of breath, Denies irregular heart rhythm, Denies shortness of breath when lying down - *Respiratory Denies chest congestion, Denies cough, Denies shortness of breath - *Gastrointestinal Reports abdominal pain, Reports change in bowel habits, Reports constipation, Reports loose stools, Reports feeling full early, Reports nausea, Reports vomiting - *Musculoskeletal Reports muscle weakness, Denies muscle cramps, Denies numbness, Denies tingling - Integumentary/Breasts Denies changing lesions, Denies sensitivity to light, Denies rash, Denies sores - *Neurologic Reports unsteadiness, Reports frequent falls, Reports weakness, Denies confusion, Denies memory loss, Denies seizure-like activity - Psychiatric Denies anxiety, Denies confusion, Denies depression - Endocrine Denies cold intolerance, Denies excessive sweating, Denies heat intolerance Meds Home Medications Medication Instructions Recorded Confirmed Type albuterol sulfate 90 mcg/actuation 2 puffs INHALATION Q4HP PRN 10/03/19 10/03/19 History aerosol inhaler hydrocodone 5 mg-aceta
[2019-10-07 18:22] VITALS: PULSE 97; PULSE 99; O2SAT 96
--- NOTE | 2019-10-07 19:08 | PC.NURSE ---
report given to ysabel
[2019-10-07 20:00] VITALS: BP 135/76; PULSE 110; RESP 18; TEMP 36.7; O2SAT 95
[2019-10-08] VITALS (8 sets, daily range): BP systolic 124–152; BP diastolic 59–76; PULSE 84–106; RESP 17–20; TEMP 36.3–36.7; O2SAT 90–96; BMI 23.6
--- NOTE | 2019-10-08 00:46 | PC.NURSE ---
RT went to give scheduled neb at midnight and pt refused, stated that she did not want one before bed. Med returned
[2019-10-08 03:19] LABS: Occult Blood,Stool Positive (Negative)
--- NOTE | 2019-10-08 07:13 | HMH.GSPN ---
Subjective Narrative: Patient resting this morning. Seen by GI staff yesterday. Unable to undergo UGI-SBFT due to residual contrast from admission CT scan on manager community film. Exam Vital signs and Labs for Last 24 Hours: Temp Pulse Resp BP Pulse Ox 98.0 F 101 H 18 152/76 H 94 L 10/08/19 04:00 10/08/19 06:16 10/08/19 04:00 10/08/19 04:00 10/08/19 04:00 Laboratory Results - last 24 hr 10/03/19 20:30: Stool H. pylori Ag Negative 10/08/19 02:50: Stool Occult Blood Positive A I & O for Last 24 hours: Intake & Output 10/05/19 10/06/19 10/07/19 10/08/19 11:59 11:59 11:59 11:59 Intake Total 3450 / 3450 2800 / 2800 1869 / 1869 575 / 575 Output Total 550 / 550 950 / 950 2000 / 2000 700 / 700 Balance 2900 / 2900 1850 / 1850 -131 / -131 -125 / -125 Weight 139 lb 12.8 oz 141 lb 4 oz 144 lb 2 oz 138 lb 7 oz Microbiology Reports for the Last 24 Hours: Microbiology 10/03/19 21:30 Urine,Catheterized Urine Culture - Final Klebsiella pneumoniae Enterococcus faecalis Progress Note: A&P (1) Nausea & vomiting Status: Acute Current Visit: Yes (2) Weakness Status: Acute Current Visit: Yes (3) Dysphagia Status: Acute Current Visit: Yes (4) Poor fluid intake Status: Acute Current Visit: Yes (5) Poor fluid intake Status: Acute Current Visit: Yes (6) At risk for dehydration due to poor fluid intake Status: Acute Current Visit: Yes (7) Pneumonia Status: Acute Current Visit: Yes (8) Asthma Status: Acute Current Visit: Yes (9) Facial bruising Status: Acute Current Visit: Yes (10) Chills Status: Acute Current Visit: Yes (11) Hypokalemia Status: Acute Current Visit: Yes (12) UTI (urinary tract infection) Status: Acute Current Visit: Yes (13) UTI due to Klebsiella species Status: Acute Current Visit: Yes (14) RANCHO (acute kidney injury) Status: Acute Current Visit: Yes (15) Anemia Status: Acute Current Visit: Yes (16) Abdominal pain Status: Acute Current Visit: Yes
--- NOTE | 2019-10-08 07:44 | HMH.ACPN ---
Internal Medicine - PN: Subj *Date: 10/08/19 *Time: 07:44 Exam Vital signs and Labs for Last 24 Hours: Temp Pulse Resp BP Pulse Ox 98.0 F 101 H 18 152/76 H 94 L 10/08/19 04:00 10/08/19 06:16 10/08/19 04:00 10/08/19 04:00 10/08/19 04:00 Laboratory Results - last 24 hr 10/03/19 20:30: Stool H. pylori Ag Negative 10/08/19 02:50: Stool Occult Blood Positive A I & O for Last 24 hours: Intake & Output 10/05/19 10/06/19 10/07/19 10/08/19 23:59 23:59 23:59 23:59 Intake Total 3295 / 3295 2028 / 2028 1295 / 1295 95 / 95 Output Total 1050 / 1250 1450 / 2150 1550 / 1650 100 / 100 Balance 2245 / 2045 579 / -121 -255 / -355 -5 / -5 Weight 63.412 kg 64.07 kg 65.374 kg 62.794 kg Microbiology Reports for the Last 24 Hours: Microbiology 10/03/19 21:30 Urine,Catheterized Urine Culture - Final Klebsiella pneumoniae Enterococcus faecalis Assessment and Plan (1) Nausea & vomiting Current visit: Yes Status: Acute Qualifiers: Vomiting type: unspecified Vomiting Intractability: intractable Qualified Code(s): R11.2 - Nausea with vomiting, unspecified Category: Medical Code(s): R11.2 - Nausea with vomiting, unspecified (2) Weakness Current visit: Yes Status: Acute Category: Medical Code(s): R53.1 - Weakness (3) Dysphagia Current visit: Yes Status: Acute Qualifiers: Dysphagia type: pharyngoesophageal phase Qualified Code(s): R13.14 - Dysphagia, pharyngoesophageal phase Category: Medical Code(s): R13.10 - Dysphagia, unspecified (4) Poor fluid intake Current visit: Yes Status: Acute Category: Medical Code(s): R63.8 - Other symptoms and signs concerning food and fluid intake (5) Poor fluid intake Current visit: Yes Status: Acute Category: Medical Code(s): R63.8 - Other symptoms and signs concerning food and fluid intake (6) At risk for dehydration due to poor fluid intake Current visit: Yes Status: Acute Category: Medical Code(s): Z91.89 - Other specified personal risk factors, not elsewhere classified (7) Pneumonia Current visit: Yes Status: Acute Qualifiers: Pneumonia type: due to unspecified organism Laterality: left Lung location: lower lobe of lung Qualified Code(s): J18.9 - Pneumonia, unspecified organism Category: Medical Code(s): J18.9 - Pneumonia, unspecified organism (8) Asthma Current visit: Yes Status: Acute Qualifiers: Asthma severity: moderate Asthma persistence: persistent Asthma complication type: unspecified Qualified Code(s): J45.40 - Moderate persistent asthma, uncomplicated Category: Medical Code(s): J45.909 - Unspecified asthma, uncomplicated (9) Facial bruising Current visit: Yes Status: Acute Qualifiers: Encounter type: initial encounter Qualified Code(s): S00.83XA - Contusion of other part of head, initial encounter Category: Medical Code(s): S00.83XA - Contusion of other part of head, initial encounter (10) Chills Current visit: Yes Status: Acute Category: Medical Code(s): R68.83 - Chills (without fever) (11) Hypokalemia Current visit: Yes Status: Acute Category: Medical Code(s): E87.6 - Hypokalemia (12) UTI (urinary tract infection) Current visit: Yes Status: Acute Qualifiers: Urinary tract infection type: site unspecified Hematuria presence: without hematuria Qualified Code(s): N39.0 - Urinary tract infection, site not specified Category: Medical Code(s): N39.0 - Urinary tract infection, site not specified (13) UTI due to Klebsiella species Current visit: Yes Status: Acute Category: Medical Code(s): N39.0 - Urinary tract infection, site not specified; B96.89 - Other specified bacterial agents as the cause of diseases classified elsewhere (14) RANCHO (acute kidney injury) Current visit: Yes Status: Acute Category: Medical Code(s): N17.
--- NOTE | 2019-10-08 09:30 | FL_ITS ---
PROCEDURE: FL UPPER GI SMALL BOWEL CLINICAL INDICATION: Nausea and vomiting COMPARISON: No exams were available for comparison FINDINGS: The civil lawyer exam shows some residual contrast within the large bowel much less than compared to the previous civil lawyer exam of 10/07/2019. The patient was given 2 cups of barium with Gastrografin mix with serial KUB and spot views at the into the exam. There is mild lumbar scoliosis convex left with degenerative changes in the spine and hips There is no evidence of small-bowel obstruction. No mass or mucosal abnormality evident. There is diverticulosis of the ileum. The terminal ileum has an unremarkable appearance. Fluoroscopy time: 23 seconds IMPRESSION: 1. Diverticulosis of the ileum. 2. No obstructing lesions or other significant anomalies. Dictated by: Benedict Pudry MD 10/08/2019 13:10 Electronically signed by Benedict Purdy MD in [place] 10/08/2019 13:10
[2019-10-08 09:43] LABS: Basophils % 0.7 % (0.1-2.0); Eosinophils # 0.2 K/mm3 (0.0-0.4); Eosinophils % 3.9 % (0.1-12.0); Hematocrit 28.6 % (37.0-47.0); Hemoglobin 9.4 g/dL (12.2-16.2); Lymphocytes # 1.4 K/mm3 (0.7-4.5); Lymphocytes % 28.4 % (10-50); Mean Corpuscular HGB Conc 32.8 g/dL (31.8-35.4); Mean Corpuscular Hemoglobin 35.3 pg (27.0-31.2); Mean Corpuscular Volume 107.5 fl (81-99); Mean Platelet Volume 10.5 fl (7.4-10.4); Monocytes # 0.4 K/mm3 (0.1-1.0); Monocytes % 7.7 % (1.7-9.3); Neutrophils # 2.9 K/mm3 (1.8-7.8); Neutrophils % 59.2 % (37.0-80.0); Platelet Count 153 K/mm3 (142-424); Red Blood Count 2.66 M/mm3 (4.20-5.40); Red Cell Distribution Width 16.1 % (11.5-17.5); White Blood Count 4.9 K/mm3 (4.8-10.8)
--- NOTE | 2019-10-08 10:04 | PC.NURSE ---
Destiny called from rad asking if pt still needed upper GI series since she had one on 10/03. Spoke w/ Dr. Garcia via telephone, ok'd for pt to have proximal small bowel follow thru and to cancel upper GI.
--- NOTE | 2019-10-08 13:05 | HMH.ACPN2 ---
Internal Medicine - PN: Subj *Date: 10/08/19 *Time: 13:05 Interval history: Patient had some coughing last night, nonproductive. She has a history of asthma. I increased the frequency of her albuterol treatments which seemed to help. There is no dyspnea at this morning. Small bowel follow-through was not feasible due to retained contrast in the upper abdomen. She received mag citrate with decent results. She has been seen in consultation with GI and general surgery. She did have some transient decline in her hemoglobin, this was felt to be possible an effect of dilution as well as sequential phlebotomy. There is been no overt hematemesis, coffee-ground production or melanotic stool. She is less nauseated today. Of much concern is her generalized weakness. She had gallbladder surgery in May and has been weak subsequently. She had previously used a walker, is now using a wheelchair. Physical therapy has been following. She was receptive to the idea of placement for a rehab facility, I am hoping that the therapist will be able to mobilize her some today. She has been very weak. Exam Vital signs and Labs for Last 24 Hours: Temp Pulse Resp BP Pulse Ox 97.4 F L 106 H 17 124/59 L 96 10/08/19 08:00 10/08/19 08:00 10/08/19 08:00 10/08/19 08:54 10/08/19 08:00 Laboratory Results - last 24 hr 10/08/19 02:50: Stool Occult Blood Positive A 10/08/19 08:58: WBC 4.9 D, RBC 2.66 L, Hgb 9.4 L, Hct 28.6 L, MCV 107.5 H, MCH 35.3 H, MCHC 32.8, RDW 16.1, Plt Count 153, MPV 10.5 H, Neut % (Auto) 59.2, Lymph % (Auto) 28.4, Appling % (Auto) 7.7, Eos % (Auto) 3.9, Baso % (Auto) 0.7, Neut # (Auto) 2.9, Lymph # (Auto) 1.4, Appling # (Auto) 0.4, Eos # (Auto) 0.2, Baso # (Auto) 0.0 I & O for Last 24 hours: Intake & Output 10/05/19 10/06/19 10/07/1921/20 23:59 23:59 23:59 23:59 Intake Total 3295 / 3295 2028 1295 / 1295 454 / 454 Output Total 1050 / 1250 1450 / 2150 1550 / 1650 100 / 100 Balance 2244 / 5 579 / -121 -255 / -355 354 / 354 Weight 139 lb 12.8 oz 141 lb 4 oz 144 lb 2 oz 138 lb 7 oz Microbiology Reports for the Last 24 Hours: Microbiology 10/03/19 21:30 Urine,Catheterized Urine Culture - Final Klebsiella pneumoniae Enterococcus faecalis - Constitutional no acute distress - *Routine HEENT Exam Head: Present: normocephalic. Absent: atraumatic ENT: Present: mucous membranes moist - *Routine Neck Exam Present: supple. Absent: JVD, tenderness - *Routine Respiratory Exam Present: decreased breath sounds. Absent: accessory muscle use, prolonged expiratory phase, rales, wheezes - *Routine Cardiovascular Exam Present: RRR. Absent: murmur - *Routine Abdominal Exam Present: soft, tenderness. Absent: distended, rebound, guarding, rigid, organomegaly - *Routine Extremities Exam Present: KO stockings. Absent: cyanosis, clubbing, calf tenderness - *Routine Skin Exam Present: intact. Absent: cyanosis, jaundice - *Routine Neurological Exam Present: alert, oriented X3 - Routine Psychiatric Exam Present: normal affect, cooperative (flat) Assessment and Plan (1) Nausea & vomiting Current visit: Yes Status: Acute Qualifiers: Vomiting type: unspecified Vomiting Intractability: intractable Qualified Code(s): R11.2 - Nausea with vomiting, unspecified Category: Medical Code(s): R11.2 - Nausea with vomiting, unspecified (2) Weakness Current visit: Yes Status: Acute Category: Medical Code(s): R53.1 - Weakness (3) Dysphagia Current visit: Yes Status: Acute Qualifiers: Dysphagia type: pharyngoesophageal phase Qualified Code(s): R13.14 - Dysphagia, pharyngoesophageal phase Category: Medical Code(s): R13.10 - Dysphagia, unspecified (4) Poor fluid intake Current visit: Yes Status: Acute Category: Medical Code(s): R63.8 - Other symptoms and signs concerning food and fluid intake
[2019-10-08 15:18] LABS: Vitamin B12 1077 pg/mL (232-1245)
--- NOTE | 2019-10-08 16:56 | PC.NURSE ---
Addendum entered by Aziza Hannah RN 10/08/19 18:28: IS = [id number] Original Note: Up to chair most of day. Tolerates activity well. Requires assistance x1 when ambulating and transferring. Remains on room air. No complaints voiced this shift. Has had multiple small loose yellow stools this shift. Voiding w/o difficulty. Medial to pt's buttocks have become reddened and barrier cream has been applied between toileting. Call broderick w/in reach. VSS. Will continue to monitor.
--- NOTE | 2019-10-09 03:45 | PC.NURSE ---
RT was told by pt that she did not want her midnight Albuterol breathing tx, pt did not want to be woken up.
[2019-10-09 04:00] VITALS: BP 163/67; PULSE 100; RESP 20; TEMP 36.8; O2SAT 98
[2019-10-09 04:47] VITALS: BMI 24.7
[2019-10-09 05:45] VITALS: PULSE 88; PULSE 92
[2019-10-09 08:00] VITALS: BP 138/71; PULSE 116; RESP 18; TEMP 36.5; O2SAT 94
--- NOTE | 2019-10-09 09:46 | HMH.DCSUM ---
General - General Admission date:: 10/03/19 Discharge date: 10/09/19 HPI HPI: Patient is an 83-year-old white female who presented from the office with significant weakness, intractable nausea and vomiting. Patient is status post cholecystectomy in May of this year. She relays that the gallbladder was gangrenous. Her surgery was at [facility] in [facility]. She has subsequently had intractable nausea and vomiting, escalating weakness. She has been to several hospitals for evaluation, including [place], [facility], and [place]. She relays increasing difficulty with swallowing, and frequent emesis. She denies hematemesis or blood per rectum. With increasing weakness the patient has sustained several falls. She fell into a dresser, has some ecchymosis along her left frontal forehead. She is clear, lucid, and at her baseline mentation. She was brought into the office in a wheelchair, and has been unable to ambulate on her own. Ms. Méndez has had a few loose bowel movements, we will send those for culture and H. pylori. We have gotten a CT scan, are awaiting the result. I reviewed her chest film, she appears to have a left lower lobe infiltrative process. Radiology report is pending. Hospital Course Hospital Course: 83-year-old female patient admitted to the hospital directly from the office with increased weakness, nausea and vomiting. She is a status post cholecystectomy May 2019 and reports that her gallbladder was gangrenous at that time in [facility] and since then she has had several hospital stays for evaluation in [place], [facility], and [facility] she does report frequent emesis and denies any blood in her emesis or stool. She reports having several falls She now denies abdominal pain or tenderness, is tolerating a diet, denies any nausea or vomiting. She does report she is having several loose bowel movements, but has also had contrast for a bowel series. She is weak and has been sitting up in the chair, with encouragement to walk to bathroom Urine culture was positive for Klebsiella pneumoniae, she has completed a full 7 days of Invanz IV. Blood cultures have been negative x2 On admission her potassium was 3.0 BUN/creatinine was 7/1.2 with a GFR 43. Currently H/H is stable at 9.4/28.6, potassium is 3.9, BUN/creatinine is 6/0.7, she was positive for heme occult blood in her stool and there has been no visible bloody stool since her admission. She is H. pylori negative Abdominal/pelvic CT shows no acute finding, colonic diverticulosis, and small nodule nodules on her right lung base with the recommended 12-month follow-up chest x-ray shows pericardial fat pad versus infiltrate in the lingular region Upper GI series shows diverticulosis of the ileum with no obstructing lesions or other significant abnormalities General Surgery has seen and recommended: Etiology of her symptoms is somewhat unclear. Certainly gastroenterology evaluation would be beneficial. I will start with obtaining an upper GI series with small bowel follow-through to evaluate for any mechanical etiology. Consideration may be given for possible EGD GI has seen and recommends: Ongoing for several months with associated lack of appetite and weight loss. This may be sequelae from chronic underlying constipation but given the length of time, her age, the weight loss and low hemoglobin, I believe she needs an EGD. Likely her weakness is exacerbated by her anemia as well. I believe that she needs an EGD as well as treatment for the underlying constipation which is likely exacerbated by the hydrocodone use. Add daily Metamucil and MiraLAX. She is currently on Protonix and as needed Reglan. Dr. Garcia appears to have added possible EGD to the plan as Dr. Mcfarlane is unavailable today. If, for what ever reason, she is unable to undergo EGD, I recommend at least an H. pylori breath test. I am happy to gerardo
--- NOTE | 2019-10-09 09:51 | SW/DCPLANNER ---
Addendum entered by Magdalena Booker 10/09/19 14:10: COVID results are NEGATIVE. Patient will discharge to [place] today. Original Note: This patient has been accepted to [facility] level of care for PT/OT. Patients daughter is agreeable with this plan and requested I call her back once patient is ready for discharge and she will have someone transport her. I will inform patient and nursing of this plan. Patient will discharge to [place] today. Lori at [facility] is also aware of this plan.
[2019-10-09 12:21] LABS: Adenovirus,PCR Not Detected (NotDetected); Bordetella Pertussis Not Detected (NotDetected); Chlamydophila Pneumoniae, PCR Not Detected (NotDetected); Coronavirus 19, PCR Not Detected (NotDetected); Coronavirus 229E Not Detected (NotDetected); Coronavirus NL63 Not Detected (NotDetected); Coronavirus OC43 Not Detected (NotDetected); Coronovirus HKU1,PCR Not Detected (NotDetected); Human Metapneumovirus Not Detected (NotDetected); Influenza A, PCR Not Detected (NotDetected); Influenza AH1, 2009 Not Detected (NotDetected); Influenza AH1, PCR Not Detected (NotDetected); Influenza AH3,PCR Not Detected (NotDetected); Influenza B, PCR Not Detected (NotDetected); Mycoplasma Pneumoniae, PCR Not Detected (NotDected); Parainfluenza 1, PCR Not Detected (NotDetected); Parainfluenza 2, PCR Not Detected (NotDetected); Parainfluenza 3, PCR Not Detected (NotDetected); Parainfluenza 4, PCR Not Detected (NotDetected); Respiratory Syncytial Virus Not Detected (NotDetected); Rhinovirus/Enterovirus Not Detected (NotDetected)
[2019-10-09 12:52] LABS: Coronavirus 19 IgG Antibody Negative (Negative); Coronavirus 19 IgM Antibody Negative (Negative)
== END 2019-10-09 15:00 ==
PROVIDERS: Emergency Medicine; Nurse Practitioner Family; Admitting Provider Family Medicine; PCP Family Medicine; Visit Provider Family Medicine
DX: E86.0 Dehydration (principal); N39.0 Urinary tract infection, site not specified; J18.9 Pneumonia, unspecified organism; R13.14 Dysphagia, pharyngoesophageal phase; I10 Essential (primary) hypertension; J44.9 Chronic obstructive pulmonary disease, unspecified; E87.6 Hypokalemia; Z88.0 Allergy status to penicillin; Z88.1 Allergy status to other antibiotic agents; S00.83XA Contusion of other part of head, initial encounter; Z79.51 Long term (current) use of inhaled steroids; Z79.899 Other long term (current) drug therapy; W01.0XXA Fall on same level from slipping, tripping and stumbling without subsequent striking against object, initial encounter; Z91.81 History of falling; E46 Unspecified protein-calorie malnutrition; Z68.24 Body mass index [BMI] 24.0-24.9, adult
CPT/HCPCS: G0379; 36415; 71046; 74018; 74177; 74240; 74246; 74248; 80048; 80053; 81001; 82150; 82272; 82607; 83605; 83690; 83735; 85025; 86328; 87040; 87045; 87086; 87088; 87186; 87338; 87507; 87581; 87633; 87798; 92610; 93005; 94640; 97110; 97162; G0328; G0378; J1335; J1956; J2405; Q9967